=== PATIENT | female | born 1980 | race African-American/Black ===

== ENCOUNTER 2022-01-04 08:42 | Inpatient (IN) | payer MEDICAID ==
[~2022-01-04] VITALS: Ht 160 cm; Wt 51.7 kg
[2022-01-04] MEDS ORDERED: PANTOPRAZOLE SODIUM 40 MG/VIAL IV STA (09:05)
[2022-01-04] MEDS ORDERED: MORPHINE SULFATE 4 MG/ML CPJ (NOT FOR IM USE) IV STA (09:05)
[2022-01-04] MEDS ORDERED: ONDANSETRON HCL 4MG/2ML INJ IV STA (09:05)
[2022-01-04] MEDS ORDERED: SODIUM CHLORIDE 0.9% 1,000 ML IV ONE (09:15)
[2022-01-04 09:35] LABS: BASOPHILS % 0.6 % (0.0-2.0); EOSINOPHILS % 3.1 % (0.0-5.0); HEMATOCRIT. 42.1 % (36.0-48.0); HEMOGLOBIN. 13.7 g/dL (12.0-16.0); LYMPHOCYTES % 28.7 % (20.0-50.0); MEAN CORPUSCULAR HEMOGLOBIN 30.3 pg (28.0-32.0); MEAN CORPUSCULAR VOLUME 93.1 fL (81.0-99.0); MEAN PLATELET VOLUME 8.7 fl (7.4-10.4); MONOCYTES % 7.5 % (2.0-8.0); NEUTROPHILS % 60.1 % (40.0-76.0); PLATELET 245 x1000/uL (130-400); RED BLOOD CELL COUNT 4.52 mill/uL (4.2-5.4); RED CELL DISTRIBUTION WIDTH 14.7 % (11.6-14.6)
[2022-01-04] MEDS ORDERED: DIPHENHYDRAMINE 25MG CAPSULE PO ONE (09:45)
[2022-01-04 09:46] LABS: CHLORIDE 107 mEq/L (98-107)
[2022-01-04 09:53] LABS: HCG SCREEN NEGATIVE
[2022-01-04 10:21] LABS: INR 1.1; PROTHROMBIN TIME 12.2 sec (9.6-11.0)
[2022-01-04] MEDS ORDERED: DIPHENHYDRAMINE 50MG/ML VIAL IV ONE (11:00)
[2022-01-04] MEDS ORDERED: MORPHINE SULFATE 4 MG/ML CPJ (NOT FOR IM USE) IV ONE (12:15)
[2022-01-04] MEDS ORDERED: HYDROMORPHONE HCL/PF 2MG/ML CPJ IV NR (15:16)
[2022-01-04] MEDS ORDERED: ACETAMINOPHEN 325MG TABLET PO PRN (17:30)
[2022-01-04] MEDS ORDERED: CLONIDINE 0.1MG TABLET PO PRN (17:30)
[2022-01-04] MEDS ORDERED: ONDANSETRON HCL 4MG/2ML INJ IV PRN (17:30)
[2022-01-04 17:45] LABS: HEPATITIS B SURFACE ANTIGEN NEGATIVE
[2022-01-04] MEDS ORDERED: NALOXONE HCL 0.4MG/ML VIAL IV PRN (17:45)
[2022-01-04 18:00] VITALS: BP 203/124
[2022-01-04 18:07] VITALS: BP 203/124
[2022-01-04] MEDS: PANTOPRAZOLE SODIUM 40 MG/VIAL IV SCH (18:55)
[2022-01-04] MEDS: MORPHINE SULFATE 2 MG/ML CPJ (NOT FOR IM USE) IV PRN ×2 (18:55→22:42)
[2022-01-04] MEDS ORDERED: CLONIDINE 0.2MG TABLET PO PRN (21:30)
[2022-01-04] MEDS: AMLODIPINE 5MG TABLET PO SCH (23:12)
[2022-01-05] VITALS: BP 172/117
[2022-01-05] MEDS: MORPHINE SULFATE 2 MG/ML CPJ (NOT FOR IM USE) IV PRN ×3 (02:14→11:58)
[2022-01-05 04:00] VITALS: BP 170/101
[2022-01-05] MEDS: CLONIDINE 0.2MG TABLET PO PRN ×2 (05:55→21:36)
[2022-01-05] MEDS ORDERED: HYDRALAZINE 20MG/ML VIAL IV PRN (06:30)
[2022-01-05] MEDS ORDERED: HYDROMORPHONE HCL/PF 2MG/ML CPJ IV NR (06:45)
[2022-01-05] MEDS ORDERED: DIPHENHYDRAMINE 50MG/ML VIAL IV NR (06:45)
[2022-01-05 07:41] LABS: BASOPHILS % 0.4 % (0.0-2.0); EOSINOPHILS % 3.2 % (0.0-5.0); HEMATOCRIT. 38.6 % (36.0-48.0); HEMOGLOBIN. 12.8 g/dL (12.0-16.0); LYMPHOCYTES % 22.1 % (20.0-50.0); MEAN CORPUSCULAR HEMOGLOBIN 30.7 pg (28.0-32.0); MEAN CORPUSCULAR VOLUME 92.7 fL (81.0-99.0); MEAN PLATELET VOLUME 8.4 fl (7.4-10.4); MONOCYTES % 6.8 % (2.0-8.0); NEUTROPHILS % 67.5 % (40.0-76.0); PLATELET 197 x1000/uL (130-400); RED BLOOD CELL COUNT 4.17 mill/uL (4.2-5.4); RED CELL DISTRIBUTION WIDTH 14.2 % (11.6-14.6)
[2022-01-05 07:49] LABS: CHLORIDE 104 mEq/L (98-107)
[2022-01-05 07:58] LABS: AMYLASE 50 IU/L (25-115)
[2022-01-05 08:00] VITALS: BP 171/101
[2022-01-05] MEDS: AMLODIPINE 5MG TABLET PO SCH ×2 (09:00→21:00)
[2022-01-05] MEDS: PANTOPRAZOLE SODIUM 40 MG/VIAL IV SCH (09:59)
[2022-01-05 12:00] VITALS: BP 138/93
[2022-01-05] MEDS: HYDROMORPHONE HCL/PF 2MG/ML CPJ IV PRN ×2 (14:52→20:58)
[2022-01-05 16:00] VITALS: BP 141/85
[2022-01-05] MEDS ORDERED: LIPASE/PROTEASE/AMYLASE 4,200/14,200/24,600 UNITS CAP DR PO SCH (17:50)
[2022-01-05] MEDS: SODIUM CHLORIDE 0.9% 1,000 ML IV SCH (18:31)
[2022-01-05 20:30] VITALS: BP 158/100
[2022-01-06] VITALS: BP 146/92
[2022-01-06] MEDS: SODIUM CHLORIDE 0.9% 1,000 ML IV SCH (01:30)
[2022-01-06] MEDS: HYDROMORPHONE HCL/PF 2MG/ML CPJ IV PRN (02:47)
[2022-01-06 04:00] VITALS: BP 151/94
[2022-01-06] MEDS ORDERED: HYDROCODONE/ACETAMINOPHEN 10/325MG TABLET PO PRN (07:30)
[2022-01-06] MEDS ORDERED: DIPHENHYDRAMINE 50MG CAPSULE PO PRN (07:45)
[2022-01-06 08:00] VITALS: BP 160/83
[2022-01-06] MEDS: AMLODIPINE 5MG TABLET PO SCH ×2 (08:10→08:16)
[2022-01-06] MEDS: PANTOPRAZOLE SODIUM 40 MG/VIAL IV SCH (08:10)
[2022-01-06 12:00] VITALS: BP 142/68
[2022-01-06] MEDS ORDERED: HYDROMORPHONE HCL/PF 2MG/ML CPJ IV PRN (13:45)
[2022-01-06] MEDS ORDERED: HYDR-4001 MT (14:22)
[2022-01-06 16:00] VITALS: BP 139/68
== END 2022-01-06 16:35 | disposition home or self-care (01) | DRG 282 ==
LOC: ER 08:42 → 6EST 14:15 → EDBEDREQTM 14:20 → EDBEDREQ 14:20 → ENRESERV 16:03 → 6WST 01-05 03:47
PROVIDERS: ADMIT Internal Medicine; ATTEND Emergency Medicine
DX: K85.90 Acute pancreatitis without necrosis or infection, unspecified (principal); K22.6 Gastro-esophageal laceration-hemorrhage syndrome; K76.89 Other specified diseases of liver; K86.1 Other chronic pancreatitis; I10 Essential (primary) hypertension; R74.01 Elevation of levels of liver transaminase levels; Z90.49 Acquired absence of other specified parts of digestive tract; Z87.19 Personal history of other diseases of the digestive system
CPT/HCPCS: 36415; 71045; 74176; 76700; 80048; 80053; 80061; 80076; 82150; 82270; 84703; 85025; 85044; 86705; 86709; 86803; 86850; 86900; 87340; 93005; 99285; C9113; J1170; J1200; J2270; J2405; J7030; Q0163